=== PATIENT | male | born 1955 | race American Indian/Alaskan Native ===

== ENCOUNTER 2025-08-28 06:04 | Day surgery (SDC) | payer BC ==
[2025-08-26 18:10] VITALS: BMI 28.3
[2025-08-28 09:18] LABS: INR 1.0 (0.83-1.09); PROTHROMBIN TIME (PATIENT) 11.0 SEC (9.7-13.0)
[2025-08-28] MEDS ORDERED: MIDAZOLAM HCL 2 MG/2 ML SINGLE DOSE VIAL ONE (10:25)
[2025-08-28] MEDS ORDERED: FENTANYL CITRATE/PF 50 MCG/ML VIAL ONE (10:25)
[2025-08-28] MEDS: FENTANYL CITRATE/PF 50 MCG/ML VIAL IVPUSH ONE ×2 (10:58→11:09)
[2025-08-28] MEDS: MIDAZOLAM HCL 2 MG/2 ML SINGLE DOSE VIAL IVPUSH ONE ×2 (10:58→11:09)
[2025-08-28 12:14] VITALS: RESP 14
[2025-08-28 14:37] VITALS: BP 148/76; PULSE 61; TEMP 97.8
== END 2025-08-28 15:30 | disposition home or self-care (01) ==
LOC: JRADIR 06:04
PROVIDERS: ATTEND Internal Medicine Nephrology
PROC: 0TB03ZX Excision of Right Kidney, Percutaneous Approach, Diagnostic (ICD-10-PCS; principal; 2025-08-28)
DX: N18.9 Chronic kidney disease, unspecified (principal); I12.9 Hypertensive chronic kidney disease with stage 1 through stage 4 chronic kidney disease, or unspecified chronic kidney disease
CPT/HCPCS: 36415; 50200-LT; 76775-TC; 76942-TC; 85610; 88300-TC; 88329